=== PATIENT | female | born 2000 | race Two or more races ===

== ENCOUNTER 2024-06-29 12:50 | Emergency (ER) | payer OTHER ==
[~2024-06-29] VITALS: Ht 167.6 cm; Wt 71.2 kg
[2024-06-29] MEDS ORDERED: KETOROLAC TROMETHAMINE 15 MG/ML VIAL ONE (14:29)
[2024-06-29] MEDS: KETOROLAC TROMETHAMINE 15 MG/ML VIAL IM ONE (14:50)
[2024-06-29 15:24] VITALS: BP 119/85; TEMP 98.7; O2SAT 100
== END 2024-06-29 15:25 | disposition home or self-care (01) ==
LOC: ER 12:56
DX: M54.50 Low back pain, unspecified (principal); M54.2 Cervicalgia; R20.0 Anesthesia of skin; R25.1 Tremor, unspecified; R53.1 Weakness
CPT/HCPCS: 99283; 96372; 84703; J1885